=== PATIENT | female | born 1970 | race Hispanic/Latino ===

== ENCOUNTER 2019-04-12 07:22 | Day surgery (SDC) | payer OTHER ==
[2019-04-12] MEDS ORDERED: IRON SUCROSE 200 MG in NA CHLORIDE 0.9% 250 ML IV ONE (08:30)
== END 2019-04-12 11:39 | disposition home or self-care (01) ==
LOC: DS 07:22
DX: D64.9 Anemia, unspecified (principal)
CPT/HCPCS: 36415; 83540; 96365; 96366